=== PATIENT | female | born 1940 | race Caucasian/White ===

== ENCOUNTER 2020-11-04 13:06 | Emergency (ER) | payer MEDICARE, SELFPAY ==
[2020-11-04 13:23] VITALS: BP 158/55; PULSE 93; RESP 18; TEMP 37; O2SAT 97; BMI 22.8
[2020-11-04 13:53] LABS: Specific Gravity - Urine 1.025 (1.005-1.025)
[2020-11-04 14:02] LABS: MANUAL DIFF FLAG NO
[2020-11-04 14:07] LABS: Appearance Urine TURBID; Color Urine ORANGE
[2020-11-04 14:07] LABS: Basophils Percent Auto 0.4 % (0-2); Eosinophils Absolute Auto 0.1 X10*3/uL (0.0-0.4); Eosinophils Percent Auto 0.6 % (0-4); Hematocrit 40.5 % (37-47); Hemoglobin 13.1 g/dl (12.0-16.0); Imm Gran Abs Auto 0.03 X10*3/uL (0.00-0.03); Imm Gran Pct Auto 0.3 % (0.0-0.4); Lymphocytes Absolute Auto 1.3 X10*3/uL (1.2-4.9); Lymphocytes Percent Auto 12.9 % (20-40); Mean Corpuscular HGB Conc 32.3 g/dl (31.0-35.0); Mean Corpuscular Hemoglobin 29.4 pg (27.0-33.0); Mean Platelet Volume 9.8 fL (9.4-12.3); Monocytes Absolute Auto 0.6 X10*3/uL (0.1-1.2); Monocytes Percent Auto 5.7 % (2-11); Neutrophils Absolute Auto 8.1 X10*3/uL (2.0-8.3); Neutrophils Percent Auto 80.1 % (45-73); Platelet Count 227 X10*3/uL (160-400); Red Blood Count 4.45 X10*6/uL (4.20-5.50); Red Cell Distribution Width 12.8 % (11.0-16.0); White Blood Count 10.1 X10*3/uL (4.8-10.8)
[2020-11-04 14:08] LABS: Bacteria Urine 3+ /LPF; RBC Urine 0-2 /HPF (0); UACC CULT YES; WBC Urine TNTC /HPF (0-4)
[2020-11-04 14:32] LABS: Alanine Aminotransferase 8 U/L (0-31); Albumin Level 4.4 g/dL (3.5-5.0); Alkaline Phosphatase 99 U/L (39-117); Anion Gap 17 (12-20); Aspartate Amino Transferase 13 U/L (5-31); Bilirubin Total 0.8 mg/dL (0.0-1.0); Blood Urea Nitrogen 18 mg/dL (9-16); Carbon Dioxide 25 mmol/L (22-29); Chloride 104 mmol/L (96-108); Creatinine Clr Calc Pharmacy 38.6; Estimated Glomerular Filt Rate > 60; Glucose Random 255 mg/dL (60-115); Potassium 5.3 mmol/L (3.3-5.1); Sodium 141 mmol/L (135-145)
[2020-11-04 16:01] VITALS: BP 148/45; PULSE 88; RESP 16; O2SAT 93
--- NOTE | 2020-11-04 17:03 | ED_ITS ---
HPI - Female Genitourinary General Chief complaint: Urogenital-Female Stated complaint: ?uti, abd pain Time Seen by Provider: 11/04/20 17:00 Source: patient Mode of arrival: ambulatory Limitations: no limitations History of Present Illness HPI Narrative: 80 y/o female with history of HTN, DM, hypothyroidism and vertigo who presents to the ER with 3 days of lower abdominal pain and dysuria. She states she started taking over the counter AZO without any improvement in her symptoms. She states the pain is worst with urination. She has increased frequency and urgency as well. She denies fever, chills, N/V/D, back pain. MD elicited complaint: dysuria Pertinent past history: diabetes Onset (ago): day(s) (3) Location of symptoms: suprapubic Severity: moderate Female Urogenital Radiation: Non-Radiating Quality of pain: burning Consistency: intermittent Vaginal discharge: none Vaginal bleeding: none Urinary symptoms: Dysuria, Urgency and Frequency Exacerbating factors: urination Relieving factors: none Associated symptoms: abdominal pain Treatment prior to arrival: OTC urinary analgesics Sexual activity: No Patient : No Related Data Previous Rx's Medication Instructions Recorded cefuroxime axetil 250 mg PO BID #12 tab 11/04/20 phenazopyridine [Pyridium] 100 mg PO TID PRN 5 Days #5 tab 11/04/20 Allergies Allergy/AdvReac Type Severity Reaction Status Date / Time Penicillins Allergy Hives Verified 11/04/20 13:22 Review of Systems Review of Systems: Constitutional: No Fever, No Chills Cardiovascular: No Chest Pain, No SOB, No Orthopnea, No Edema Respiratory: No Cough, No Sputum, No Wheezing, No dyspnea Gastrointestinal: No Nausea, No Vomiting, No Diarrhea, + abdominal Pain, No Hematochezia, No Melena Genitourinary: + Dysuria, + Urinary Frequency, No Hematuria Musculoskeletal: No joint pain, No Myalgias Skin: No Skin Lesions, No rash Neuro: No Weakness, No Numbness, No Dizziness, No Headache Heme/Lymph: No Bruising, No Lymphadenopathy Endocrine: No Polyuria, No Polydipsia PMFSH Past Medical History Attestation statement: The following information was validated with the patient. Medical History Diabetes HTN (hypertension) Thyroid activity decreased Vertigo Social History Social History Alcohol intake: never Smoking Status: Never smoker Use of substances other than those prescribed or required for medical reasons: No Advance Directives: No Advance Directives Information Provided: Yes Physical Exam Vital Signs: Vital Signs: Last Vital Signs Temp 98.6 F 11/04/20 13:23 Pulse 85 11/04/20 18:00 Resp 16 11/04/20 18:00 BP 178/85 H 11/04/20 18:00 Pulse Ox 93 11/04/20 18:00 Body Mass Index 22.8 Appearance: Alert. Oriented X3. No acute distress. Eyes: Pupils equal, round and reactive to light. ENT: Pharynx normal. Neck: Normal inspection. CVS: Normal heart rate and rhythm. Pulses normal. Respiratory: No respiratory distress. Breath sounds normal. Abdomen: Soft with suprapubic tenderness +BS x4 Skin: Skin warm and dry. Normal skin color. Normal skin turgor. No rashes. Extremities: No lower extremity edema. Neuro: Oriented X 3. No motor deficit. No sensory deficit. Ambulates with steady gait Course Course Course Narrative: 80 y/o female presenting with lower abdominal pain and dysuria x3 days. She is afebrile and hemodynamically stable on arrival. Non-toxic appearing. Not septic. Lab workup showing mild hyperkalemia 5.3, glucose of 255, and BUN 18. No leukocytosis. UA is positive for infection. Will give IVF and dose of IV Rocephin now. She will be stable for discharge home on PO antibiotics. Patient and family are agreeable with plan. Reevaluation(s) Reevaluation #1: Patient remains hemodynamically stable and afebrile. She tolerated the IV Rocephin (reported hives to N). She is stable for d/c home w ith PO antibiotics. MDM - Female Genitourinary Lab Data Result diagrams: 11/04/20 13:56 11/04/20 13:56 Labs: Lab Results 11/04/20 11/04/20 11/04/20 Range/Units 13:32 13:56 13:56 WBC 10.1 (4.8-10.8) X10*3/uL RBC 4.45 (4.20-5.50) X10*6/uL Hgb 13.1 (12.0-16.0) g/dl Hct 40.5 (37-47) % MCV 91.0 (80-98) fL MCH 29.4 (27.0-33.0) pg MCHC 32.3 (31.0-35.0) g/dl RDW 12.8 (11.0-16.0) % Plt Count 227 (160-400) X10*3/uL MPV 9.8 (9.4-12.3) fL Immature Gran % (Auto) 0.3 (0.0-0.4) % Neut % (Auto) 80.1 H (45-73) % Lymph % (Auto) 12.9 L (20-40) % [place] % (Auto) 5.7 (2-11) % Eos % (Auto) 0.6 (0-4) % Baso % (Auto) 0.4 (0-2) % Lymph # (Auto) 1.3 (1.2-4.9) X10*3/uL Murray # (Auto) 0.6 (0.1-1.2) X10*3/uL Eos # (Auto) 0.1 (0.0-0.4) X10*3/uL Baso # (Auto) 0.0 (0.0-0.2) X10*3/uL Abs Immat Gran (auto) 0.03 (0.00-0.03) X10*3/uL Absolute Neuts (auto) 8.1 (2.0-8.3) X10*3/uL Absolute Nucleated RBC 0.000 (0.0-0.012) X10*3/uL Nucleated RBC % (auto) 0.0 (0.0-0.2) /100WBC Hold Blue Top SEE NOTE Sodium (135-145) mmol/L Potassium (3.3-5.1) mmol/L Chloride (96-108) mmol/L Carbon Dioxide (22-29) mmol/L Anion Gap (12-20) BUN (9-16) mg/dL Creatinine (0.5-1.4) mg/dL Estim Creat Clear Calc Estimated GFR Random Glucose (60-115) mg/dL Calcium (8.4-10.2) mg/dL Total Bilirubin (0.0-1.0) mg/dL AST (5-31) U/L ALT (0-31) U/L Alkaline Phosphatase (39-117) U/L Total Protein (6.5-8.0) g/dL Albumin (3.5-5.0) g/dL Urine Color ORANGE Urine Appearance TURBID Urine pH 5.0 (5.0-8.0) Ur Specific [place] 1.025 (1.005-1.025) Urine Protein SEE NOTE (NEG-TRACE) MG/DL Urine Glucose (UA) SEE NOTE (NEG) MG/DL Urine Ketones SEE NOTE (NEG) MG/DL Urine Blood SEE NOTE (NEG) Urine Nitrite SEE NOTE (NEG) Ur Leukocyte Esterase SEE NOTE (NEG) Urine RBC 0-2 (0) /HPF Urine WBC TNTC H (0-4) /HPF Ur Squamous Epith Cells NONE /LPF Urine Bacteria 3+ /LPF 11/04/20 Range/Units 13:56 WBC (4.8-10.8) X10*3/uL RBC (4.20-5.50) X10*6/uL Hgb (12.0-16.0) g/dl Hct (37-47) % MCV (80-98) fL MCH (27.0-33.0) pg MCHC (31.0-35.0) g/dl RDW (11.0-16.0) % Plt Count (160-400) X10*3/uL MPV (9.4-12.3) fL Immature Gran % (Auto) (0.0-0.4) % Neut % (Auto) (45-73) % Lymph % (Auto) (20-40) % [place] % (Auto) (2-11) % Eos % (Auto) (0-4) % Baso % (Auto) (0-2) % Lymph # (Auto) (1.2-4.9) X10*3/uL [place] # (Auto) (0.1-1.2) X10*3/uL Eos # (Auto) (0.0-0.4) X10*3/uL Baso # (Auto) (0.0-0.2) X10*3/uL Abs Immat Gran (auto) (0.00-0.03) X10*3/uL Absolute Neuts (auto) (2.0-8.3) X10*3/uL Absolute Nucleated RBC (0.0-0.012) X10*3/uL Nucleated RBC % (auto) (0.0-0.2) /100WBC Hold Blue Top Sodium 141 (135-145) mmol/L Potassium 5.3 H (3.3-5.1) mmol/L Chloride 104 (96-108) mmol/L Carbon Dioxide 25 (22-29) mmol/L Anion Gap 17 (12-20) BUN 18 H (9-16) mg/dL Creatinine 0.82 (0.5-1.4) mg/dL Estim Creat Clear Calc 38.6 Estimated GFR > 60 Random Glucose 255 H (60-115) mg/dL Calcium 10.0 (8.4-10.2) mg/dL Total Bilirubin 0.8 (0.0-1.0) mg/dL AST 13 (5-31) U/L ALT 8 (0-31) U/L Alkaline Phosphatase 99 (39-117) U/L Total Protein 8.0 (6.5-8.0) g/dL Albumin 4.4 (3.5-5.0) g/dL Urine Color Urine Appearance Urine pH (5.0-8.0) Ur Specific [place] (1.005-1.025) Urine Protein (NEG-TRACE) MG/DL Urine Glucose (UA) (NEG) MG/DL Urine Ketones (NEG) MG/DL Urine Blood (NEG) Urine Nitrite (NEG) Ur Leukocyte Esterase (NEG) Urine RBC (0) /HPF Urine WBC (0-4) /HPF Ur Squamous Epith Cells /LPF Urine Bacteria /LPF Discharge Plan Discharge Clinical Impression: Urinary tract infection Qualifiers: Urinary tract infection type: acute cystitis Hematuria presence: without hematuria Qualified Code(s): N30.00 - Acute cystitis without hematuria Patient Disposition: Home, Self-Care Instructions: Urinary Tract Infection in Older Adults (ED) Additional Instructions: Your urine test today showed signs of a urinary tract infection. You were given a dose of IV antibiotics in the ER. Start the prescribed oral antibiotics tomorrow morning. Take the Pyridium medication as needed for bladder pain. It may turn your urine orange color - this is normal. Drink plenty of water and stay hydrated. Follow up with your doctor next week. If you have worsening symptoms, or develop fever, nausea and vomiting, come back to the ER for further evaluation. Prescriptions: New cefuroxime axetil 250 mg tablet 250 mg PO BID Qty: 12 RF: 0 phenazopyridine [Pyridium] 100 mg tablet 100 mg PO TID PRN (Reason: pain) 5 Days Qty: 5 RF: 0
[2020-11-04] MEDS: 0.9 % Sodium Chloride 1,000 ML 999 ML IVCONT (17:57)
[2020-11-04] MEDS: cefTRIAXone sodium 1 GM in 0.9 % Sodium Chloride 50 ML IV (17:58)
[2020-11-04 18:00] VITALS: BP 178/85; PULSE 85; RESP 16; O2SAT 93
[2020-11-04] MEDS: Phenazopyridine HCL 100 MG TABLET PO (18:00)
== END 2020-11-04 19:02 | disposition home or self-care (01) ==
PROVIDERS: Emergency Provider Internal Medicine
DX: N30.00 Acute cystitis without hematuria (principal); E87.5 Hyperkalemia; R10.30 Lower abdominal pain, unspecified; I10 Essential (primary) hypertension; E11.9 Type 2 diabetes mellitus without complications
CPT/HCPCS: 36415; 80053; 81001; 81003; 85025; 87086; 87088; 87186; 96361; 96365; 99284; 99285; J0696

== ENCOUNTER 2022-09-25 13:04 | Outpatient (REF) | payer MEDICARE, SELFPAY ==
[2022-09-25 13:34] LABS: COVID-19 Test Negative (Negative); IDNOW Serial# BCCEAD1C
== END 2022-09-25 13:05 | disposition home or self-care (01) ==
LOC: HO.LAB 13:04
PROVIDERS: Visit Provider Internal Medicine
DX: Z20.822 Contact with and (suspected) exposure to COVID-19 (principal)
CPT/HCPCS: 87635; C9803